=== PATIENT | female | born 1980 | race Caucasian/White ===

== ENCOUNTER 2023-10-29 10:07 | Emergency (ER) | payer OTHER, SELFPAY ==
[2023-10-29 10:13] VITALS: BP 109/74
[2023-10-29 10:29] LABS: % Basophils 0.7 % (0-2); % Eosinophils 0.7 % (0-6); % Immature Granulocytes 0.4 % (0-0.5); % Lymphocytes 38.1 % (20.5-51.1); % Neutrophils 55.1 % (42.2-75.2); Absolute Lymphocytes 1.1 10^3/uL (1.2-3.4); Absolute Monocytes 0.1 10^3/uL (0.1-0.6); Absolute Neutrophils 1.5 10^3/uL (1.4-6.5); Hematocrit 36.5 % (37.0-47.0); Hemoglobin 12.8 g/dL (12.0-16.0); Mean Corp Hgb Conc. 35.1 g/dL (33.0-37.0); Mean Corpuscular Hgb 30.8 pg (27.0-31.0); Nucleated Red Blood Cells % 0 %; Platelet Count 195 10^3/uL (130-400); Red Blood Cell Count 4.15 10^6/uL (4.20-5.40); Red Cell Dist. Width 13.4 % (11.5-14.5); White Blood Cell Count 2.8 10^3/uL (4.8-10.8)
[2023-10-29 10:41] LABS: HCG, Serum Qualitative Screen Negative
[2023-10-29 10:44] VITALS: BMI 28.5
[2023-10-29 10:44] LABS: ALT (SGPT) 27 U/L (0-35); AST (SGOT) 35 U/L (14-36); Albumin 3.7 g/dl (3.5-5.0); Alkaline Phosphatase 50 U/L (38-126); Blood Urea Nitrogen 9 mg/dl (7-17); Calcium 8.6 mg/dl (8.4-10.2); Carbon Dioxide 23 mmol/L (22-30); Chloride 109 mmol/L (98-107); Glucose 73 mg/dl (70-99); Sodium 136 mmol/L (135-145); Total Bilirubin 0.6 mg/dl (0.2-1.3); Total Protein 6.2 g/dl (6.3-8.2); eGFR > 60.00
[2023-10-29 10:47] LABS: COVID-19 Antigen Negative (Negative)
[2023-10-29 11:12] VITALS: BP 106/71
--- NOTE | 2023-10-29 11:21 | ED.GENMED ---
History of Present Illness
General
Chief Complaint: Headache
Source: patient
Exam Limitations: none
Time Seen by Provider: 10/29/23 10:55
Travel History
Have you had any contact with someone who has COVID-19?: No
Do you have any symptoms of coronavirus? Fever > 100 degrees, chills, cough, shortness of breath, sore throat, loss of taste or smell, muscle aches, or headache?: No
History of Present Illness
History of Present Illness:
43-year-old female presents with gradually worsening headache since 3 days ago. They after it started she had a low-grade fever but since then has had no fever. She notes blurry vision out of both eyes. She denies chest pain numbness to the arms
or legs or neck stiffness. She vomited once at the onset however since then no vomiting. No known sick contacts. The headache is relieved somewhat with Advil. She denies a rash. No other complaints at this time
Past History
Past History
ED Past Medical History: Psychiatric; Negative Asthma, HTN, Hypercholesterolemia or NIDDM
ED Past Surgical History: and Other (Umbilical hernia)
Social History
Tobacco: Non-smoker
Alcohol: Occasional
Drug: None
Personal:
Living: with family
Phy Exam
Physical Exam
Physical Exam:
General: Well-appearing female no acute respiratory distress HEENT: Normocephalic atraumatic neck is supple posterior pharynx without erythema exudate no adenopathy TMs normal pupils equal round reactive to light
Heart: Regular rate and rhythm no murmurs
Lungs: Clear to auscultation bilaterally no wheezing
Abdomen: Soft nontender nondistended no guarding rebound normal bowel sounds
Neurologic exam: Alert and oriented x 3 no meningeal signs good strength to the upper and lower extremities normal gait no facial asymmetry
Course
Orders/Labs/Results
Orders:
Orders
10/29/23 10:18
CT Head W/o Iv Contrast Urgent
Comment:
Reason For Exam: MADSEN with nausea, balance off
10/29/23 10:19
Test Result ONCE
10/29/23 10:21
COVID-19 Antigen Urgent
Source: Nasal Swab
Complete Blood Count/With Diff Urgent
Comprehensive Metabolic Panel Urgent
HCG, Serum Qualitative Screen Urgent
Lactic Acid Urgent
Blood Culture Urgent
[place] Source: Blood/Venous
Specimen Description:
Influenza A+B Rapid Molecular Urgent
[place] Source: Nasal Swab
Specimen Description:
Abnormal Lab Results
10/29/23
10:21
WBC 2.8 L 10^3/uL
(4.8-10.8)
RBC 4.15 L 10^6/uL
(4.20-5.40)
Hct 36.5 L %
(37.0-47.0)
Absolute Lymphs (auto) 1.1 L 10^3/uL
(1.2-3.4)
Chloride 109 H mmol/L
(98-107)
Total Protein 6.2 L g/dl
(6.3-8.2)
10/29/23 10:21
10/29/23 10:21
Vital Signs
Initial and Last Documented VS:
Initial Vital Signs
Temp Pulse Resp BP Pulse Ox
98.0 F 80 16 109/74 98
10/29/23 10:13 10/29/23 10:13 10/29/23 10:13 10/29/23 10:13 10/29/23 10:13
Last Documented Vital Signs
Temp Pulse Resp BP Pulse Ox
98.0 F 69 15 105/73 98
10/29/23 10:13 10/29/23 12:04 10/29/23 12:04 10/29/23 12:04 10/29/23 12:04
MDM/Problems Addressed
Differential Diagnosis Includes:
Headache. Consider viral illness. Patient does not describe a sudden onset headache to suggest subarachnoid hemorrhage. No neurologic deficit on exam. No rash. Patient remotely does have a history of breast cancer. Will obtain CT of the head
as she does not get headaches. Check labs. COVID and flu test pending as well. Offered IV medication and fluid however patient declined
*Critical Care Note
Total Time (30-74mins, 75-104mins- exclusive of procedures): Not Applicable
Update Note
Update Note:
CT of the head was negative. Patient remains nontoxic here no meningeal signs on exam no vomiting no neurologic deficit. Suspect underlying viral illness. No indication for lumbar puncture at this time. Return precautions were given advised
follow-up with family doctor regarding low white blood cell count recent labs
ED Attending Note
-
Portions of this chart may have been created with voice recognition software.� Occasional wrong word or��sound alike� substitutions may have occurred due to the inherent limitations of voice recognition software.
Discharge Plan
Departure
Patient Disposition: Home (Routine Discharge)
Date of Disposition: 10/29/23
Time of Disposition: 12:48
Patient with high blood pressure during this ER visit?: No
Discharge Problem:
Headache
Instructions: Headache, Adult (DC)
Prescriptions:
No Action
ibuprofen 200 MG tablet
600 mg PO Q6HPRN PRN (Reason: pain) Qty: 1 0RF
levothyroxine 25 mcg Tablet
25 mcg PO DAILY
lamotrigine [Lamictal] 25 mg Tablet
125 mg PO BID
Referrals:
Helen Catalan MD [Family Provider] -
Activity Restrictions/Additional Instructions:
Continue with Tylenol or ibuprofen For pain. Please follow-up with your family doctor for recheck and recheck of blood work given low white blood cell count noted today
Interventions
Interventions:
*Risk Screen - Suicide Last Done: 10/29/23 10:44
*Neglect/Abuse Screening Last Done: 10/29/23 10:44
*ED COVID-19 Vaccine History Last Done: 10/29/23 10:13
ED- Neurological Assessment Last Done: 10/29/23 10:48
[2023-10-29 12:04] VITALS: BP 105/73
== END 2023-10-29 13:02 | disposition home or self-care (01) ==
LOC: EMR 10:07
PROVIDERS: Student in an Organized Health Care Education/Training Program; EMERGENCY PHYSICIAN Emergency Medicine; FAMILY PHYSICIAN Emergency Medicine
DX: R51.9 Headache, unspecified (principal); Z85.3 Personal history of malignant neoplasm of breast
CPT/HCPCS: 99284; 70450; 80053; 83605; 84703; 85025; 87040; 87502; 87811

== ENCOUNTER → 2024-03-05 08:40 | Outpatient (REF) | payer OTHER, SELFPAY | LOC: WDC 08:40 | PROVIDERS: ATTENDING PHYSICIAN Obstetrics & Gynecology; FAMILY PHYSICIAN Pediatrics | DX: Z12.31 Encounter for screening mammogram for malignant neoplasm of breast (principal) | CPT/HCPCS: 77063; 77067 ==

== ENCOUNTER → 2025-03-06 11:54 | Outpatient (REF) | payer OTHER, SELFPAY | LOC: WDC 11:54 | PROVIDERS: ATTENDING PHYSICIAN Nurse Practitioner Family | DX: Z12.31 Encounter for screening mammogram for malignant neoplasm of breast (principal) | CPT/HCPCS: 77063; 77067 ==